=== PATIENT | male | born 1955 | race Hispanic/Latino ===

== ENCOUNTER 2017-06-19 08:00 | Outpatient (CLI) | payer BC ==
--- NOTE | 2017-06-19 08:16 | XRay Report ---
Left knee 4 views: History: Pain. Findings: Marked narrowing of the medial compartment and patellofemoral compartment knee joint. Sclerotic articular surfaces with peripheral osteophyte suggestive of severe degenerative changes. No fracture, soft tissue calcification or joint effusion. Mild degenerative changes lateral compartment Impression: Severe degenerative changes medial and patellofemoral compartment knee.
== END 2017-06-19 08:01 | disposition home or self-care (01) ==
LOC: SPVIMAG 08:00
PROVIDERS: ATTEND Orthopaedic Surgery Sports Medicine
DX: M17.12 Unilateral primary osteoarthritis, left knee (principal)